=== PATIENT | male | born 1955 | race Caucasian/White ===

== ENCOUNTER → 2016-07-22 | Outpatient (CLI) | payer MEDICARE, MEDICAID ==
--- NOTE | 2016-07-27 09:11 | RADIOLOGY REPORT PS360 ---
EXAM: CT LUNG LOW DOSE WO CONTRAST COMPARISON: None HISTORY: 61-year-old male with 40 pack-year smoking history asymptomatic ORDERING PHYSICIAN: Jorge A Hardin MD PATIENT AGE: 61 years TECHNIQUE: The exam was performed on a GE Light Speed [address] scanner using 2.96 mGy CTDI. A low dose helical CT CHEST was performed on a multi-detector scanner The LDCT was performed in a facility that meets the criteria for the screening program. Data regarding this exam was submitted to ACR which is an approved registry. The order for this exam indicates that it came as a result of a lung cancer screening counseling shard decision-making visit that included all the elements required of such a visit including smoking cessation. The radiologist interpreting this exam meets the [facility] criteria for the LDCT lung cancer screening program. The exam is reported using the Lung-RADS classification scale and reported to the ACR registry. NOTE: This study was performed for the specific purposes of lung cancer screening and is not an alternative to diagnostic chest CT. RADIATION DOSE: CTDI vol(CT dose Index-volume) = 2.96mG DLP (Dose Length Product) = 123.92 mGcm FINDINGS: There is an 8 mm parenchymal opacity in the right apex medially. This is likely related postinflammatory fibrotic change. Six-month follow-up recommended. A 3 mm noncalcified nodules present in the left upper lobe. There is hyperinflation with attenuation of the peripheral pulmonary vessels and bronchial thickening consistent with obstructive chronic bronchitis with mild centrilobular emphysematous changes. No effusions or infiltrates. Coronary artery calcifications noted. 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 IMPRESSION: 1. Lung RADS Category: 3, probably benign 2. Other findings: Emphysema with obstructive chronic bronchitis. Coronary artery disease RECOMMENDATIONS: 6 monthd LDCT follow-up
== END ==
LOC: RAD 14:09
DX: Z87.891 Personal history of nicotine dependence (principal); Z12.2 Encounter for screening for malignant neoplasm of respiratory organs
CPT/HCPCS: G0297

== ENCOUNTER 2017-03-02 07:52 | Day surgery (SDC) | payer MEDICARE ==
[~2017-03-02] VITALS: Ht 172.7 cm; Wt 98.4 kg
--- NOTE | 2017-03-02 09:57 | Operative Note ---
Surgeon/Diagnoses Surgeon/Advertising Executive(s) Date of procedure: 03/02/17 Surgeon: MD Zeeshan Tomlinson Diagnoses Pre-op diagnosis: History of colon polyps Post-op diagnosis Colon polyps Hemorrhoids Procedure Procedure Procedure: Colonoscopy with polypectomy, biopsy, and tattoo Indications: DARRELL AMOS is a 61 year-old Male with a history of multiple polyps approximately 12 years ago and multiple polyps also approximately 10 years ago. The patient states that he "was supposed to have more colonoscopies, but could not get to it". Findings: Bowel preparation relatively fair Significant colonic tortuosity and lack of relaxation/spasticity Hemorrhoidal cushions with no thrombosis or active bleeding Multiple complex polyps (see specimens) Procedure Description: After informed consent was obtained, the patient was taken to the endoscopy suite. Monitored anesthesia care ensued after he was transferred to the LEFT lateral decubitus position. Digital rectal exam revealed some hemorrhoidal cushions. The colonoscope was placed in position. The entire colon was evaluated. Doppler perforation was relatively fair with irrigation and suctioning used to improve visualization. Fairly significant tortuosity and severe spasticity/lack of relaxation were encountered. Visualization was somewhat difficult in certain areas. The large complex sessile 1 cm polyp of the cecum was excised by way of snare and biopsy forceps. This area was tattooed for future reference. A RIGHT colon polyp and adjacent nodular polyps are excised by way of snare and cold biopsy forceps. A total of 8 polyps were excised from this site. 2 hepatic flexure polyps were excised by way of snare. 2 transverse colon polyps were excised by way of cold biopsy forceps and snare. To splenic flexure polyps were excised by way of cold biopsy forceps and snare. A large pedunculated polyp at [address] by [address] of snare. Polyp at [address] excised by way snare but this was not retrievable secondary to severe spasticity and nonvisualization. A cluster polyps that were hyperplastic appearing around 25 cm were noted. Biopsies were obtained. The colonoscope was carefully removed and the patient was transferred recovery. EBL (ml): 1 Anesthesia: Monitored anesthesia care Complications: No immediate Specimens: Complex sessile 1 cm cecal polyp (snare and tattoo) 8 RIGHT colon polyps (snare and cold biopsy forceps) 2 hepatic flexure polyps (snare) 2 transverse colon polyps (snare and cold biopsy forceps) 2 splenic flexure polyps (snare and cold biopsy forceps) Large pedunculated polyp at 40 cm (snare) Polyp at 30 cm (non-retrievable) Biopsy of cluster polyps at 25 cm Disposition Disposition: Stable to recovery from where he will be discharged home. He will follow up in one week. Repeat colonoscopy is pending pathology but will likely be around 1 year secondary to size/nature/number polyps and lack of relaxation/spasticity. at [id number]
[2017-03-02 14:20] VITALS: BP 112/65
== END 2017-03-02 14:53 | disposition home or self-care (01) ==
LOC: SDC 07:52
PROVIDERS: Surgery
PROC: 0DBL8ZX Excision of Transverse Colon, Via Natural or Artificial Opening Endoscopic, Diagnostic (ICD-10-PCS; 2017-03-02)
PROC: 0DBF8ZX Excision of Right Large Intestine, Via Natural or Artificial Opening Endoscopic, Diagnostic (ICD-10-PCS; 2017-03-02)
PROC: 0DBF8ZX Excision of Right Large Intestine, Via Natural or Artificial Opening Endoscopic, Diagnostic (ICD-10-PCS; 2017-03-02)
PROC: 3E0H8GC Introduction of Other Therapeutic Substance into Lower GI, Via Natural or Artificial Opening Endoscopic (ICD-10-PCS; 2017-03-02)
PROC: 0DBH8ZX Excision of Cecum, Via Natural or Artificial Opening Endoscopic, Diagnostic (ICD-10-PCS; principal; 2017-03-02 08:30)
DX: Z12.11 Encounter for screening for malignant neoplasm of colon (principal); Z86.010 Personal history of colon polyps; K63.5 Polyp of colon; K64.9 Unspecified hemorrhoids